=== PATIENT | female | born 1990 | race African-American/Black ===

== ENCOUNTER 2017-06-26 21:08 | Emergency (ER) | payer BC ==
[2017-06-26] MEDS ORDERED: SODIUM CHLORIDE 0.9% FLUSH 10 ML FLUSH IV FLUSH (22:00)
[2017-06-26 22:08] LABS: BILIRUBIN, URINE NEG (NEG); BLOOD, URINE SMALL (NEG); GLUCOSE,URINE NEG (NEG); KETONE, URINE 40 mg/dL (NEG); NITRITE,URINE NEG (NEG); URINE LEUKOCYTE ESTERASE SMALL (NEG)
[2017-06-26] MEDS: ALUMINUM/MAGNESIUM/SIMETH 30 ML CUP PO (22:09)
[2017-06-26] MEDS: ONDANSETRON HCL 4 MG/2 ML VIAL IVP (22:09)
[2017-06-26] MEDS: SODIUM CHLOR 0.9% 1000 ML INJ 1,000 ML IV (22:09)
[2017-06-26 22:12] LABS: AUTOMATED NEUTROPHIL # 6.3 TH/MM3 (1.8-7.7); BASOPHIL # 0.2 TH/MM3 (0-0.2); BASOPHIL % 2.4 % (0.0-2.0); EOSINOPHIL # 0.1 TH/MM3 (0-0.4); EOSINOPHIL % 1.3 % (0.0-4.0); HEMATOCRIT 39.4 % (35.0-46.0); HEMO FLAGS AUTO DIFF; HEMOGLOBIN 12.5 GM/DL (11.6-15.3); LYMPH % 9.7 % (9.0-44.0); LYMPHOCYTE # 0.8 TH/MM3 (1.0-4.8); MEAN CELL VOLUME 77.5 FL (80.0-100.0); MEAN CORPUSCULAR HEMOGLOBIN 24.7 PG (27.0-34.0); MEAN CORPUSCULAR HGB CONC 31.8 % (32.0-36.0); MEAN PLATELET VOLUME 7.7 FL (7.0-11.0); MONO % 6.2 % (0.0-8.0); MONOCYTE # 0.5 TH/MM3 (0-0.9); NEUT % 80.4 % (16.0-70.0); PLATELET COUNT 392 TH/MM3 (150-450); RED BLOOD COUNT 5.08 MIL/MM3 (4.00-5.30); RED CELL DISTRIBUTION WIDTH 15.3 % (11.6-17.2); WHITE BLOOD COUNT 7.9 TH/MM3 (4.0-11.0)
[2017-06-26 22:18] LABS: URINE COLOR YELLOW (YELLW/STRAW)
[2017-06-26 22:19] LABS: SQUAMOUS EPITHELIAL CELL URINE 0-5 /hpf (0-5)
[2017-06-26 22:20] LABS: BACTERIA, URINE OCC /hpf; CHLORIDE 102 MEQ/L (98-107); COMMENT (UR) CULTURE INDICATED; CULTURE IF INDICATED CULTURE INDICATED; POTASSIUM 3.8 MEQ/L (3.5-5.1); RBC, URINE 0-3 /hpf (0-3); SODIUM (NA) 136 MEQ/L (136-145)
[2017-06-26 22:24] LABS: ALBUMIN 3.4 GM/DL (3.4-5.0); ANION GAP 6 MEQ/L (5-15); BICARBONATE 28.1 MEQ/L (21.0-32.0); BLOOD UREA NITROGEN 9 MG/DL (7-18); GLUCOSE,RANDOM 169 MG/DL (74-106); LIPASE 67 U/L (73-393)
[2017-06-26 22:27] LABS: ALT (GPT) 30 U/L (10-53); AST (GOT) 21 U/L (15-37); CREATININE 0.67 MG/DL (0.50-1.00); GLOMERULAR FILTRATION RATE 129 ML/MIN (>89)
[2017-06-26 22:28] LABS: TOTAL BILIRUBIN ADULT 0.4 MG/DL (0.2-1.0); TOTAL PROTEIN 8.5 GM/DL (6.4-8.2)
[2017-06-26 22:30] LABS: ALKALINE PHOSPHATASE 94 U/L (45-117)
[2017-06-26 22:32] LABS: PLATELET ESTIMATE SMEAR NORMAL (NORMAL); PLATELET MORPHOLOGY CLUMPED (NORMAL); SCAN/DIFF AUTO DIFF CONFIRMED
== END 2017-06-27 00:03 | disposition home or self-care (01) ==
LOC: PHED 06-27 00:03
DX: R10.13 Epigastric pain (principal); N39.0 Urinary tract infection, site not specified; R19.7 Diarrhea, unspecified; B96.89 Other specified bacterial agents as the cause of diseases classified elsewhere; J45.909 Unspecified asthma, uncomplicated
CPT/HCPCS: 80053; 81001; 83690; 84703; 85025; 87086; 96361; 96374; 99284-25

== ENCOUNTER 2017-08-10 20:45 | Emergency (ER) | payer OTHER, BC ==
[~2017-08-10 20:45] MED LIST: CIPR500T2 PO; ZOFR4TAB PO
[2017-08-10 20:49] VITALS: BP 165/69; PULSE 90; RESP 16; TEMP 98.4; O2SAT 100
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
== END 2017-08-11 00:40 | disposition home or self-care (01) ==
LOC: NEPK 20:45
DX: S39.012A Strain of muscle, fascia and tendon of lower back, initial encounter (principal); S46.912A Strain of unspecified muscle, fascia and tendon at shoulder and upper arm level, left arm, initial encounter; M54.5 Low back pain; V49.49XA Driver injured in collision with other motor vehicles in traffic accident, initial encounter; Y92.410 Unspecified street and highway as the place of occurrence of the external cause
CPT/HCPCS: 72100; 73030; 99283